=== PATIENT | male | born 1995 | race Hispanic/Latino ===

== ENCOUNTER 2016-09-10 17:53 | Emergency (ER) | payer OTHER ==
[~2016-09-10] VITALS: Ht 167.6 cm; Wt 72.7 kg
[2016-09-10 17:56] VITALS: BP 137/86; PULSE 81; RESP 18; O2SAT 98
[2016-09-10] MEDS ORDERED: Lidocaine-Epi-Tetracaine Solution 3 mL Syringe TOPICAL ONE (18:01)
--- NOTE | 2016-09-10 18:07 | ED.REPORT ---
HPI-Extremity Problem Upper Date of Service Sep 10, 2016 ED Provider: History of Present Illness: cut left hand with a card boxer at home about 45 minutes ago. unknown tdap. right hand dominant. primary care is no one. 08/06 Nursing Notes Stated Complaint: CUT MY HAND OPEN ABOUT 1/2 INCH Chief Complaint: Laceration Nursing Notes Reviewed: Yes Allergies: Uncoded Allergies: NKDA (Allergy, Unknown, 03/15/04) No Known Allergies (Allergy, Unknown, 03/15/04) General Time Seen by MD: 18:06 Chief Complaint Hand Injury left Hx Obtained From: Patient Onset Occurred: Just prior to arrival Symptom Duration: Since onset Immunizations: Unknown Past Medical History Past Medical History Denies: Asthma, Diabetes mellitus Past Surgical History denies Smoking History Former Smoker (quit 2 years ago) Social History Alcohol Use: "Social" Drug Use: Denies drug use Occupation lives with girlfriend, work at [employer] 09/10/2016 Ambulatory Status Independent Review of Systems Basic Review of Systems Eyes: Vision NL, No discharge Psychiatric: Normal thought content Physical Exam Initial Vital Signs Vital Signs (First) Date Time Temp Pulse Resp B/P Pulse Ox O2 Delivery O2 Flow Rate FiO2 09/10/16 17:56 36.1 81 18 137/86 98 Room Air Initial VS: Reviewed, Vital signs normal General/Constitutional: Well-developed, Well-nourished Head / Eyes: Atraumatic, Normocephalic, PERRL ENT: Mucous membranes moist, Conjunctiva normal, No scleral icterus Neck: Supple, Non-tender, Full range of motion Respiratory: Breath sounds normal, Clear to auscultation, No respiratory distress Cardiovascular: Regular rate & rhythm, Heart sounds normal, Intact distal pulses Abdomen / GI: Soft, Non-tender, No guarding, No rebound, No distention Back: No CVA tenderness Lymphatic: No lymphadenopathy Lower Extremities: Vascular intact, Neuro intact, No swelling, No tenderness Skin: Warm, Dry, No cyanosis Neurologic: Alert, Oriented, Nonfocal Psychiatric: Mood/affect normal, Behavior normal, Normal thought content General/Constitutional: Awake, Alert, No acute distress, Well appearing, Well developed, Well hydrated Respiratory / Chest: Atraumatic, Breath sounds NL, Breath sounds = bilat, No respiratory distress Cardiovascular: Heart rate NL, Regular rhythm, Heart sounds NL, No gallop Upper Extremity / MS: Atraumatic, Inspection NL, Full range of motion, No swelling 1 cm laceration on dorsum of left hand by web space. No active bleeding. Range of motion intact. Procedures Laceration Management Time: 18:15 Procedure Performed by: Allied health pract Consent / Setup / Site Prep: Informed consent provided, Consent from patient Location of Wound: left hand Wound Length: 1 cm Local Anesthesia: Lidocaine w epi 1%, 4cc, 27g needle Digital Block: No Wound Preparation: Normal saline Debridement: None Irrigation: 150 cc Repair Skin: ___ O (5), Nylon # Sutures - Skin: 2 Closure Layers: 1 Suture Technique: Simple Post-Procedure / Complications: Antibiotic oint applied, Dressing applied, No complications, Condition improved, Tolerated procedure well, Patient stable Re-Eval/Medical Decision Med Decision/Clinical Course 21 year old male presents for evualation of laceration which he initially reports the mechanism as a card boxer. Later , he reports it was a knife. Exam indicates on themar eminance a small puncture wound from knife extension into tissue. No active bleeding. Full range of motion. No sign of compartment syndrome or cellulitis. Discharge & Departure Impression: Primary Impression: Laceration Disposition: Home Patient Instructions: Laceration (ED) Additional Instructions: You have been up dated on your tdap. The wound has been repaired with 2 sutures. Use bacitracin to the site daily. Keep covered with a bandaid. Sutures out in 10 days here. It is OK to get it wet in 24 hours. Watch for increasing redness like a sunburn. Use ibuprofen 800 mg up to 3 times a day for 3 days. Can use hydrocodone 1 at night as needed for severe unrelenting pain. #6. Establish in primary care with the residency clinic. Referrals: [facility] EDSupervising Provider for APC: Sal Bhandari MD copies to: [facility] Concha Ambrosio Sep 10, 2016 18:07
[2016-09-10] MEDS ORDERED: TdaP Vaccine 0.5 mL Inj IM ONE (18:15)
== END 2016-09-10 18:54 | disposition home or self-care (01) ==
LOC: SED 17:53
DX: S61.412A Laceration without foreign body of left hand, initial encounter (principal); W26.0XXA Contact with knife, initial encounter; Y93.89 Activity, other specified; Y99.8 Other external cause status; Y92.019 Unspecified place in single-family (private) house as the place of occurrence of the external cause; Z87.891 Personal history of nicotine dependence; Z23 Encounter for immunization